=== PATIENT | female | born 1980 | race Caucasian/White ===

== ENCOUNTER 2022-05-04 22:15 | Emergency (ER) | payer SELFPAY ==
[~2022-05-04] VITALS: Ht 165.1 cm; Wt 79.0 kg
[2022-05-05] MEDS ORDERED: SODIUM CHLORIDE 0.9% 1,000 ML IV ONE (00:15)
[2022-05-05] MEDS ORDERED: ACETAMINOPHEN 325MG TABLET PO ONE (00:15)
[2022-05-05 00:43] LABS: BASOPHILS % 0.4 % (0.0-2.0); CHLORIDE 100 mEq/L (98-107); HEMATOCRIT. 33.8 % (36.0-48.0); HEMOGLOBIN. 10.7 g/dL (12.0-16.0); LYMPHOCYTES % 7.9 % (20.0-50.0); MEAN CORPUSCULAR HEMOGLOBIN 23.8 pg (28.0-32.0); MEAN PLATELET VOLUME 8.8 fl (7.4-10.4); NEUTROPHILS % 89.7 % (40.0-76.0); PLATELET 262 x1000/uL (130-400); RED BLOOD CELL COUNT 4.51 mill/uL (4.2-5.4)
[2022-05-05] MEDS ORDERED: METOCLOPRAMIDE HCL 10MG TABLET PO ONE (00:45)
[2022-05-05] MEDS ORDERED: DIPHENHYDRAMINE 25MG CAPSULE PO ONE (00:45)
[2022-05-05 01:00] LABS: ETHANOL BLOOD < 10 mg/dL
[2022-05-05 01:20] LABS: HCG SCREEN NEGATIVE
[2022-05-05] MEDS ORDERED: LORAZEPAM 1MG TABLET PO ONE (01:45)
[2022-05-05] MEDS ORDERED: HYDR-3782 MT (01:56)
[2022-05-05] MEDS ORDERED: METO-293 MT (01:56)
[2022-05-05] MEDS ORDERED: ACET-2708 MT (01:56)
[2022-05-05] MEDS ORDERED: LIDOCAINE 5% PATCH TOP SCH (02:15)
[2022-05-05] MEDS ORDERED: IBUPROFEN 600MG TABLET PO ONE (02:15)
[2022-05-05 02:33] VITALS: BP 122/74
== END 2022-05-05 02:52 | disposition home or self-care (01) ==
LOC: ER 22:15
DX: F41.0 Panic disorder [episodic paroxysmal anxiety] (principal); F43.0 Acute stress reaction; R51.9 Headache, unspecified; E87.6 Hypokalemia; R53.1 Weakness; M54.2 Cervicalgia; Z63.79 Other stressful life events affecting family and household
CPT/HCPCS: 36415; 80053; 80320; 82962; 84703; 85025; 93005; 96360; 96361; 99284; J7030; J8597; Q0163; G0480